=== PATIENT | female | born 1975 | race Caucasian/White ===

== ENCOUNTER 2016-10-17 08:32 | Emergency (ER) | payer OTHER ==
--- NOTE | 2016-10-17 09:20 | UC ---
Cardiac HPI - HPI Summary HPI Summary: Chest pain for 1 week yesterday had episode of sob nausea and sweating with nausea--resolved with rest.. Patient does report increase in stresses including a stressful job, provides care to her nephews - History of Current Complaint Chief Complaint: EDChestPainROMI Stated Complaint: CHEST PAIN Time Seen by Provider: 10/17/16 09:10 Hx Obtained From: Patient, Medical Records Onset/Duration: Gradual Onset, Lasting Weeks - 1, Still Present, Resolved - SOB , Nausea resolved---has continued chest wall tenderness Timing: Constant Initial Severity: Moderate Current Severity: Moderate Pain Intensity: 8 Chest Pain Location: Discrete at: - left sternal border 4 rib area Character: Sharp/Stabbing Aggravating: Exertion Alleviating: Rest Associated Signs & Symptoms: Positive: Chest Pain, Anxiety, Recent Stress, Dizziness, SOB, Nausea/Vomiting, Abdominal Pain. 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 Psychological History: Anxiety, Depression - Surgical History Surgical History: Yes Surgery Procedure, Year, and Place: APPENDIX, TUMOR REMOVED RIGHT SIDE RIB CAGE - Family History Known Family History: Positive: Hypertension, Diabetes - Social History Occupation: Employed Full-time Lives: With Family Alcohol Use: Occasionally Substance Use Type: Marijuana Smoking Status (MU): Never Smoked Tobacco Review of Systems Constitutional: Negative Skin: Negative Eyes: Negative ENT: Negative Respiratory: Shortness Of Breath - yesterday Cardiovascular: Chest Pain - chest wall pain LSB 4 th rib Gastrointestinal: Nausea - yesterday Genitourinary: Negative Motor: Negative Neurovascular: Negative Musculoskeletal: Negative Neurological: Negative Psychological: Negative All Other Systems Reviewed And Are Negative: Yes Physical Exam Triage Information Reviewed: Yes Appearance: Well-Appearing, No Pain Distress, Well-Nourished Vital Signs: Initial Vital Signs Temp 98.2 F 10/17/16 08:33 Pulse 83 10/17/16 08:33 Resp 20 10/17/16 08:33 BP 117/71 10/17/16 08:33 Pulse Ox 97 10/17/16 08:33 Vital Signs Reviewed: Yes Eye Exam: Normal Eyes: Positive: Conjunctiva Clear ENT Exam: Normal ENT: Positive: Normal ENT inspection, Hearing grossly normal. Negative: Nasal congestion, Nasal drainage, Trismus, Muffled/hoarse voice Dental Exam: Normal Neck exam: Normal Neck: Positive: Supple, Nontender, No Lymphadenopathy, Other: - (-) for carotid bruits Respiratory Exam: Normal Respiratory: Positive: Lungs clear, Normal breath sounds, No respiratory distress, No accessory muscle use, Other: - tender LSB as described Cardiovascular Exam: Normal Cardiovascular: Positive: RRR, No Murmur, Pulses Normal, Brisk Capillary Refill Abdominal Exam: Normal Abdomen Description: Positive: No Organomegaly, Soft, Other: - tender left upper and lower abdomen. Negative: Bruit, CVA Tenderness (R), CVA Tenderness (L ), Guarding Bowel Sounds: Positive: Present Musculoskeletal Exam: Normal Musculoskeletal: Positive: Strength Intact, ROM Intact, No Edema, Other: - no calf tenderness, swelling erythema, cord Neurological Exam: Normal Neurological: Positive: Alert, Muscle Tone Normal Psychological Exam: Normal Skin Exam: Normal Diagnostics - Radiology No standard instances Xray Interpretation: No Acute Changes Radiology Interpretation Completed By: Radiologist - EKG Cardiac Rate: NL Cardiac Rhythm: Sinus: Normal Ectopy: None ST Segment: Non-Specific - t wave inver Lead III was flat on EKG 07/29/13 Re-Evaluation - Re-Evaluation First Eval Change: Improved - Sleeping at time of re-evaluation, reviewed instructions and importance of follow up examination and primary care for wellness - Assessment/Plan Course Of Treatment: naproxen, vistaril, rest follow with pcp in next 5 days-- - Differential Diagnoses - Chest Pain Differential Diagnosis/HQI/PQRI: ACS, Angina, Chest Wall - Clinical Impression Provider Diagnoses: Chest wall pain - Physician Notifications Discussed Patient Care With: Surekha Jesus Time Discussed With Above Provider: 10:30 Instructed by Provider To: Other - discharge Discharge - Discharge Plan Condition: Stable Disposition: HOME Prescriptions: Naproxen Sodium [Naproxen Sodium 500 MG TAB] 500 mg PO BID PRN #40 tab PRN Reason: take with food hydrOXYzine PAMOATE CAP* [Vistaril CAP*] 1 - 2 tab PO Q6H #40 cap Patient Education Materials: Chest Pain (ED), Stress (ED), Chest Wall Pain (ED) Forms: *Work Release Referrals: [facility] [place] [facility]FERRAL [Outside] - 5 Days
--- NOTE | 2016-10-17 09:39 | RAD ---
Indication: Chest pain. 2 views of the chest including dual energy PA views demonstrate no mediastinal shift. Right infrahilar surgical clips are noted presumably from prior lung resection. No pleural fluid is identified. Overall no changes noted since July 29, 2013. IMPRESSION: Postoperative changes right infrahilar area with no definite pneumonia.
[2016-10-17 09:49] LABS: Hematocrit 42 % (35-47); Hemoglobin 14.1 g/dl (12.0-16.0); Mean Corpuscular HGB Conc 34 g/dl (31-36); Mean Corpuscular Hemoglobin 32 pg (27-31); Mean Corpuscular Volume 93 fL (80-97); Mean Platelet Volume 8 um3 (7.4-10.4); Red Blood Count 4.48 10^6/ul (4.0-5.4); Red Cell Distribution Width 14 % (10.5-15)
[2016-10-17 09:58] LABS: Albumin 3.7 g/dL (3.2-5.2); BUN/Creatinine Ratio 21.4 (8-20); Calcium 8.8 mg/dL (8.6-10.3); EGFR African American 117.5 (>60); EGFR Non-African American 91.3 (>60); Globulin 2.8 g/dL (2-4); Potassium 3.6 mmol/L (3.5-5.0); Total Bilirubin 0.4 mg/dL (0.2-1.0); Total Protein 6.5 g/dL (6.4-8.9)
[2016-10-17 10:21] LABS: TSH (Thyroid Stimulating Horm) 0.53 mcIU/mL (0.34-5.60)
[2016-10-17 10:55] VITALS: BP 116/80
--- NOTE | 2016-10-18 12:25 | ED ---
Montrell Corona Alfonso, scribed for Surekha Jesus MD on 10/17/16 at 0932 . Progress - Progress Note Progress Note: Discussed case with Esther who will be seeing this patient. - Results/Orders Results/Orders: EKG 0858 BPM 68. NSR. Normal IV and AV conduction times. Normal QTc. Normal axis. Compared no acute changes but T-wave inversion in lead III from 07/29/13 Course/Dx - Diagnoses Provider Diagnoses: Chest wall pain The documentation as recorded by the Montrell gurrola Alfonso accurately reflects the service I personally performed and the decisions made by Edin sawant Barbara J, MD.
== END 2016-10-17 11:06 | disposition home or self-care (01) ==
LOC: ED 08:32
DX: R07.89 Other chest pain (principal); R06.02 Shortness of breath
CPT/HCPCS: 36415; 71020; 80053; 82550; 82553; 83690; 83735; 84443; 84484; 85025; 93005; 99282

== ENCOUNTER → 2016-11-30 10:03 | Emergency (ER) | payer OTHER ==
[~2016-11-30 10:03] MED LIST: Albuterol/Ipratropium NEB.SOL* Albuterol 2.5 MG/Ipratropium 0.5 MG 3 ML INH ONE; Potassium Chlor TAB* 20 MEQ TAB.ER PO ONE; methylPREDNISolone SOD 40 MG* 1 ML VIAL IV ONE
--- NOTE | 2016-11-30 10:45 | ED ---
Respiratory - HPI Summary HPI Summary: Pt here w/ SOB. She developed URI sx 2 days ago with sinus pain/pressure, nasal congestion, rhinorrhea, ST, ear pressure. FOllowing day she developed a cough and fever of 102F. Today her cough got much worse and she has SOB with coughing spells. 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 No mask worn, No mold or asbestos exposure of which she's aware. And although she doesn't smoke, has long h/o 2nd smoke exposure (parents, family, etc) and admits to bronchitis 2 x year. She does not have dx of asthma nor COPD and does not use routine nor rescue medications for breathing issues as she only gets them when she's sick w/ a cold. Appetite reduced but no giselle nausea, vomiting, diarrhea. Additionally, she notes a hive like rash that is painful x .... This is pruritic and has left her LE's pigmented and swollen. No ho cardiac issues. Admits to ED visit within the year for chest pain unrelated to cough/illness. This was worked up and per pt, negative for cardiac pathology. 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 - no residual effects - History of Current Complaint Chief Complaint: EDShortnessOfBreath Stated Complaint: DIFF BREATHING Time Seen by Provider: 11/30/16 10:15 Hx Obtained From: Patient Pain Intensity: 5 Sputum Amount: Scant - Allergy/Home Medications Allergies/Adverse Reactions: Allergies Allergy/AdvReac Type Severity Reaction Status Date / Time No Known Allergies Allergy Verified 11/30/16 10:10 PMH/Surg Hx/FS Hx/Imm Hx Previously Healthy: Yes Endocrine/Hematology History: Reports: Other Endocrine/Hematological Disorders - mirena in place Denies: Hx Diabetes, Hx Thyroid Disease, Hx Coagulopothy, Autoimmune Disease Cardiovascular History: Denies: Hx Aneurysm, Hx Angina, Hx Congenital Heart Disease, Hx Congestive Heart Failure, Hx Coronary Artery Disease, Hx Deep Vein Thrombosis, Hx Embolism , Hx Hypertension, Hx Myocardial Infarction, Hx Pacemaker/ICD, Hx Valvular Heart Disease Respiratory History: Denies: Hx Asthma, Hx Chronic Obstructive Pulmonary Disease (COPD) - admits to bronchitis 2 x year, Hx Sleep Apnea GI History: Denies: Hx Ulcer Sensory History: Denies: Hx Hearing Aid Psychiatric History: Denies: Hx Panic Disorder - Cancer History Cancer Type, Location and Year: NON CANCER Hx Chemotherapy: No Hx Radiation Therapy: No - Surgical History Surgery Procedure, Year, and Place: APPENDIX, TUMOR REMOVED RIGHT SIDE RIB CAGE Infectious Disease History: No Infectious Disease History: Denies: Hx Hepatitis, Hx Human Immunodeficiency Virus (HIV), Traveled Outside the [place] in Last 30 Days - Family History Known Family History: Positive: Hypertension, Diabetes - Social History Occupation: Employed Full-time Lives: With Family Alcohol Use: Occasionally Substance Use Type: Reports: Marijuana - couple of times a month Hx Tobacco Use: No - 2nd hand smoke exposure throughout childhood Smoking Status (MU): Never Smoked Tobacco Review of Systems Positive: Fever - see HPI. Negative: Chills ENT: Other - see HPI Positive: Chest Pain - with coughing Positive: Shortness Of Breath, Cough - see HPI Gastrointestinal: Negative Positive: no symptoms reported Positive: Rash - see HPI Positive: Headache - see HPI Psychological: Normal All Other Systems Reviewed And Are Negative: Yes Physical Exam Triage Information Reviewed: Yes Vital Signs On Initial Exam: Initial Vitals Temp Pulse Resp BP Pulse Ox 98.4 F 81 20 144/91 94 11/30/16 10:10 11/30/16 10:10 11/30/16 10:10 11/30/16 10:10 11/30/16 10:10 Vital Signs Reviewed: Yes Appearance: Positive: Ill-Appearing - coughing frequently and SOB after speaking consecutive sentences. Other times she is able to speak w/o difficulty. , Obese Skin: Positive: Warm, Dry Head/Face: Positive: Normal Head/Face Inspection - frontal and maxillary sinuses TTP Eyes: Positive: Normal, EOMI, Conjunctiva Clear. Negative: Conjunctiva Inflammed, Discharge ENT: Positive: Normal ENT inspection, Hearing grossly normal, Pharynx normal, Nasal congestion, TMs normal. Negative: Nasal drainage - no edema, Tonsillar swelling, Tonsillar exudate, Muffled/hoarse voice Neck: Positive: Supple, Nontender, No Lymphadenopathy Respiratory/Lung Sounds: Positive: Breath Sounds Present, Wheezes - throughout chest. Negative: Rales Cardiovascular: Positive: Normal, RRR, Pulses are Symmetrical in both Upper and Lower Extremities, S1, S2. Negative: Murmur, Rub, Leg Edema Left, Leg Edema Right - (-) Diego's signs B/L Abdomen Description: Positive: Nontender, Soft Bowel Sounds: Positive: Present Musculoskeletal: Positive: Normal, Strength/ROM Intact Neurological: Positive: Normal, Sensory/Motor Intact, Alert, Oriented to Person Place, Time, CN Intact II-III Psychiatric: Positive: Normal - although brief anxiety when SOB occurs - she's able to recover her breathing - Roxanna Coma Scale Coma Scale Total: 15 Diagnostics - Vital Signs Vital Signs Temp Pulse Resp BP Pulse Ox 11/30/16 10:36 71 16 96 11/30/16 10:22 98.4 F 80 18 152/98 94 11/30/16 10:19 18 11/30/16 10:10 98.4 F 81 20 144/91 94 - Laboratory Result Diagrams: 11/30/16 10:30 11/30/16 10:30 Lab Statement: Any lab studies that have been ordered have been reviewed, and results considered in the medical decision making process. 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 H/o bronchitis 2 x year for past many years and h/ o 2nd hand smoke exposure during childhood. Clinically, this constitutes dx of COPD however w/o CXR hyperinflation, will defer to pulmonology for definitive dx. Wheezing throughout chest upon auscultation. This and cough/SOB improved clinically and per pt's report s/p 2 duonebs and prednisone IV. Will d/c w/ albuterol and prednisone and close f/u w/ PCP, referral to pulmonology. Advised rest and avoiding triggers (ie. dust, chemicals, etc) until cleared by PCP. Reviewed danger s/sx of when to return to ED. NOTE: a w/u for sarcoidosis was initiated today and all tests are negative. This was checked for her combination of pulmonary sx along with chest pain last month and rash. Advise continued f/u w/ PCP. Pt agrees w/ plan. - Diagnoses Provider Diagnoses: Reactive airway disease with wheezing Discharge - Discharge Plan Condition: Stable Disposition: HOME Prescriptions: Albuterol HFA INHALER* [Ventolin HFA Inhaler*] 2 puff INH Q4H PRN #1 mdi PRN Reason: Cough predniSONE TAB* [Deltasone TAB*] 40 mg PO DAILY #8 tab Patient Education Materials: Reactive Airways Disease (ED) Referrals: Mitchell Ramos MD [Primary Care Provider] - Esmer Palomo MD [Medical Doctor] - Additional Instructions: You appear to be having a reactive airway episode today most likely triggered by dust inhalation. Please rest and avoid triggers (ie. dust, perfumes, candles , air fresheners, smoke, etc) until cleared by PCP. It is advised that you use your albuterol inhaler every 4-6 hours for cough, wheezing, chest tightness, shortness of breath - DO NOT EXCEED THIS DOSE - if you feel this is not helping , return to ED. Complete prednisone as prescribed and follow-up with PCP for referral to payroll consultant. Call today to schedule appointment. You may also support your upper respiratory tract by using saline nasal washes and throat gargles as needed for congestion, irritation. Drink plenty of fluids. *If you develop return of difficulty breathing, shortness of breath, fatigue, return to ED
[2016-11-30 11:05] LABS: Hematocrit 38 % (35-47); Hemoglobin 13.1 g/dl (12.0-16.0); Mean Corpuscular HGB Conc 34 g/dl (31-36); Mean Corpuscular Hemoglobin 31 pg (27-31); Mean Corpuscular Volume 92 fL (80-97); Mean Platelet Volume 7 um3 (7.4-10.4); Red Blood Count 4.18 10^6/ul (4.0-5.4); Red Cell Distribution Width 14 % (10.5-15); White Blood Count 8.9 10^3/ul (3.5-10.8)
[2016-11-30 11:24] LABS: C Reactive Protein 6.07 mg/L (< 5.00); Total Bilirubin 0.3 mg/dL (0.2-1.0)
[2016-11-30 11:26] LABS: Albumin 3.5 g/dL (3.2-5.2); BUN/Creatinine Ratio 21.2 (8-20); Calcium 8.8 mg/dL (8.6-10.3); EGFR African American 125.7 (>60); EGFR Non-African American 97.7 (>60); Globulin 2.8 g/dL (2-4); Potassium 3.1 mmol/L (3.5-5.0); Total Protein 6.3 g/dL (6.4-8.9)
--- NOTE | 2016-11-30 11:27 | RAD ---
INDICATION: Cough, wheezing and shortness of breath. COMPARISON: Comparison is made with a prior chest x-ray study from October 17, 2016. TECHNIQUE: Dual-energy PA and lateral views of the chest were obtained. FINDINGS: The heart is within normal limits in size. Mediastinal and hilar contours appear within normal limits. Several surgical clips project over the right hilum. There has been partial resection of the right fifth rib. The lungs are clear. No pleural effusion is seen. IMPRESSION: POSTSURGICAL CHANGES, NO EVIDENCE FOR ACUTE FINDING.
[2016-11-30 12:30] LABS: Erythrocyte Sed Rate 14 mm/Hr (0-14)
[2016-11-30 13:05] VITALS: BP 139/74
== END | disposition home or self-care (01) ==
LOC: ED 10:03
DX: R07.9 Chest pain, unspecified (principal); R06.02 Shortness of breath; R21 Rash and other nonspecific skin eruption; R51 Headache; J45.909 Unspecified asthma, uncomplicated
CPT/HCPCS: 36415; 71020; 80053; 85025; 85652; 86140; 86431; 94640; 96374; 99283; A9270-GY; J2920

== ENCOUNTER 2017-05-15 14:47 | Emergency (ER) | payer OTHER ==
[2017-05-15 16:31] VITALS: BP 141/88
--- NOTE | 2017-05-15 16:45 | UC ---
FLU HPI - HPI Summary HPI Summary: Pt presents with body aches, chills, ST, and cough that started today. She also says that for the past 3 days she has had nausea with 2-3 episodes of vomiting. Has not vomited yet today, but still feels afraid to ear. Her boyfriend is sick with similar symptoms and is being treating for the flu. She has been taking tylenol cold and flu for her symptoms with no relief. She denies fever, SOB, chest pain, diarrhea, dysuria, or pelvic pain. She has not taken anything OTC for this. - History of Current Complaint Chief Complaint: UCGeneralIllness Stated Complaint: NAUSEA, FATIGUE Time Seen by Provider: 05/15/17 16:33 Hx Obtained From: Patient Hx Last Menstrual Period: 05/04/17 Onset/Duration: Gradual Onset Severity Currently: Severe Severity Initially: Severe Pain Intensity: 8 Pain Scale Used: 0-10 Numeric - Allergy/Home Medications Allergies/Adverse Reactions: Allergies Allergy/AdvReac Type Severity Reaction Status Date / Time No Known Allergies Allergy Verified 05/15/17 16:19 Home Medications: Home Medications Fexofenadine/Pseudoephedrine [Kiesha-D 24 Hour Tablet] 1 each PO DAILY [History Confirmed 05/15/17] LORazepam TAB(*) [Ativan 1 MG TAB (*)] 1 mg PO BEDTIME PRN 05/15/17 [History Confirmed 05/15/17] Phenylephrine/Dm/Acetaminop/GG [Tylenol Cold-Flu Severe Caplet] 1 each PO ONCE 05/15/17 [History Confirmed 05/15/17] PMH/Surg Hx/FS Hx/Imm Hx Previously Healthy: Yes Respiratory History: Asthma Psychological History: Anxiety, Depression - Surgical History Surgical History: Yes Surgery Procedure, Year, and Place: APPENDIX 1993, TUMOR REMOVED RIGHT SIDE RIB CAGE 2006 - Family History Known Family History: Positive: Hypertension, Diabetes - Social History Occupation: Employed Full-time Lives: With Family Alcohol Use: Occasionally Substance Use Type: Marijuana Smoking Status (MU): Never Smoked Tobacco Household Exposure Type: Cigarettes Review of Systems Constitutional: Fatigue, Other - Body aches Skin: Negative Eyes: Negative ENT: Ear Ache Respiratory: Cough Cardiovascular: Negative Gastrointestinal: Abdominal Pain - Generalized, Vomiting, Nausea Genitourinary: Negative Neurovascular: Negative Musculoskeletal: Negative Neurological: Negative Psychological: Negative All Other Systems Reviewed And Are Negative: Yes Physical Exam Triage Information Reviewed: Yes Appearance: Well-Appearing, No Pain Distress, Well-Nourished Vital Signs: Initial Vital Signs Temp 99.8 F 05/15/17 16:23 Pulse 68 05/15/17 16:23 Resp 16 05/15/17 16:23 BP 141/88 05/15/17 16:23 Pulse Ox 100 05/15/17 16:23 Vital Signs Reviewed: Yes Eyes: Positive: Conjunctiva Clear. Negative: Conjunctiva Inflamed, Discharge ENT: Positive: Hearing grossly normal, Pharynx normal, TMs normal, Uvula midline. Negative: Pharyngeal erythema, Nasal congestion, Nasal drainage, TM bulging, TM dull, TM red, Tonsillar swelling, Tonsillar exudate, Hoarse voice, Sinus tenderness Neck: Positive: Supple, Nontender, No Lymphadenopathy Respiratory: Positive: Chest non-tender, Lungs clear, Normal breath sounds, No respiratory distress, No accessory muscle use Cardiovascular: Positive: RRR, No Murmur, Pulses Normal Abdomen Description: Positive: No Organomegaly, Soft, Other: - Generalized tenderness. Negative: CVA Tenderness (R), CVA Tenderness (L), Distended, Guarding, McBurney's Point Tenderness, Peritoneal Signs, Pulsatile Mass, Splenomegaly Bowel Sounds: Positive: Present Neurological: Positive: Alert Psychological: Positive: Age Appropriate Behavior Skin: Negative: rashes Flu Course/Dx - Course Course Of Treatment: POC flu swab negative. Suspect viral gastroenteritis vs influenza. Tamiflu, Zofran, and zantac. F/u with PCP within 1 week or if symptoms persist. - Differential Dx/Diagnosis Provider Diagnoses: Viral gastroenteritis Discharge - Discharge Plan Condition: Stable Disposition: HOME Prescriptions: Ondansetron TAB* [Zofran 4 MG Tab*] 4 mg PO Q6H PRN #12 tab PRN Reason: Nausea Oseltamivir CAP* [Tamiflu CAP*] 75 mg PO BID #10 cap Ranitidine TAB (NF) [Zantac TAB (NF)] 150 mg PO DAILY PRN #14 tab PRN Reason: Nausea Patient Education Materials: Influenza (ED), Gastroenteritis (DC) Forms: *Work Release Referrals: Mitchell Ramos MD [Primary Care Provider] - Additional Instructions: If you develop a fever, shortness of breath, chest pain, new or worsening symptoms - please call your PCP or go to the ED. Your blood pressure was high at todays visit. Please see your primary provider within 4 weeks for recheck and re-evaluation.
== END 2017-05-15 17:35 | disposition home or self-care (01) ==
LOC: UCEAST 14:47
DX: A08.4 Viral intestinal infection, unspecified (principal); J45.909 Unspecified asthma, uncomplicated; F41.9 Anxiety disorder, unspecified; F32.9 Major depressive disorder, single episode, unspecified; F12.90 Cannabis use, unspecified, uncomplicated; Z77.22 Contact with and (suspected) exposure to environmental tobacco smoke (acute) (chronic)
CPT/HCPCS: 87502; 99212; G0463

== ENCOUNTER 2018-03-14 16:50 | Emergency (ER) | payer OTHER ==
--- NOTE | 2018-03-14 17:15 | ED ---
Back Pain - HPI Summary HPI Summary: Patient is a 42 y/o F presenting to ED with left lower back pain onsetting four days ago. She states pain onset suddenly when she woke up in the morning, no injury reported. Pain is characterized as spasms. She notes that certain movements aggravate pain. No numbness is reported, pain does not radiate into leg. Left leg is reported to be weak. No abnormalities with urination or bowel movements reported. Pain is noted to radiate in left gluteal area. She reports vomiting, no fever or chills. On triage, pain is rated 10/10, nothing is noted to aggravate/alleviate Sx. 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 Home medications and allergies are reviewed. - History of Current Complaint Chief Complaint: EDBackInjuryPain Stated Complaint: BACK PAIN Time Seen by Provider: 03/14/18 17:08 Hx Obtained From: Patient Hx Last Menstrual Period: 05/04/17 Onset/Duration: Lasting Days - four days, Still Present Onset/Duration: Started Days Ago - four days, Still Present Timing: Constant, Lasting Days - four days Back Pain Location: Is Discrete @ - left lower back Severity Currently: Severe Pain Intensity: 10 Pain Scale Used: 0-10 Numeric - 10/10 Character: Spasmodic Aggravating Symptom(s): Movement - certain Alleviating Symptom(s): Nothing Associated Signs And Symptoms: Positive: Other - no chills. Negative: Fever, Bladder Incontinence, Bowel Incontinence - Allergies/Home Medications Allergies/Adverse Reactions: Allergies Allergy/AdvReac Type Severity Reaction Status Date / Time No Known Allergies Allergy Verified 03/14/18 17:02 PMH/Surg Hx/FS Hx/Imm Hx Endocrine/Hematology History: Reports: Other Endocrine/Hematological Disorders - mirena in place Denies: Hx Diabetes, Hx Thyroid Disease Cardiovascular History: Denies: Hx Aneurysm, Hx Angina, Hx Congenital Heart Disease, Hx Congestive Heart Failure, Hx Coronary Artery Disease, Hx Deep Vein Thrombosis, Hx Embolism , Hx Hypertension, Hx Myocardial Infarction, Hx Pacemaker/ICD, Hx Valvular Heart Disease Respiratory History: Denies: Hx Asthma, Hx Chronic Obstructive Pulmonary Disease (COPD) - admits to bronchitis 2 x year, Hx Sleep Apnea GI History: Denies: Hx Ulcer Sensory History: Denies: Hx Hearing Aid Psychiatric History: Denies: Hx Panic Disorder - Cancer History Cancer Type, Location and Year: NON CANCER Hx Chemotherapy: No Hx Radiation Therapy: No - Surgical History Surgery Procedure, Year, and Place: APPENDIX 1993, TUMOR REMOVED RIGHT SIDE RIB CAGE 2006 Infectious Disease History: No Infectious Disease History: Denies: Hx Hepatitis, Hx Human Immunodeficiency Virus (HIV), Traveled Outside the [place] in Last 30 Days - Family History Known Family History: Positive: Hypertension, Diabetes - Social History Alcohol Use: Occasionally Substance Use Type: Reports: Marijuana Hx Tobacco Use: No - 2nd hand smoke exposure throughout childhood Smoking Status (MU): Never Smoked Tobacco Review of Systems Negative: Fever, Chills Positive: Vomiting Positive: other - NO ABNORMAL URINATION OR BOWEL MOVEMENTS . Negative: incontinence Positive: Other - POSITIVE - LEFT LOWER BACK PAIN Positive: Weakness - LEFT LEG . Negative: Numbness All Other Systems Reviewed And Are Negative: Yes Physical Exam - Summary Physical Exam Summary: VITAL SIGNS: Reviewed. GENERAL: Patient is a well-developed and nourished female who is lying comfortable in the stretcher. Patient is not in any acute respiratory distress. Vertebral tenderness in lumbar spine. HEAD AND FACE: No signs of trauma. No ecchymosis, hematomas or skull depressions. No sinus tenderness. EYES: PERRLA, EOMI x 2, No injected conjunctiva, no nystagmus. EARS: Hearing grossly intact. Ear canals and tympanic membranes are within normal limits. MOUTH: Oropharynx within normal limits. NECK: Supple, trachea is midline, no adenopathy, no JVD, no carotid bruit, no c- spine tenderness, neck with full ROM. CHEST: Symmetric, no tenderness at palpation LUNGS: Clear to auscultation bilaterally. No wheezing or crackles. CVS: Regular rate and rhythm, S1 and S2 present, no murmurs or gallops appreciated. ABDOMEN: Soft, non-tender. No signs of distention. No rebound no guarding, and no masses palpated. Bowel sounds are normal. RECTAL EXAM: done in presence of female fiber optics technician, normal sphincter tone, no saddle anesthesia. EXTREMITIES: left leg weakness, no edema, no cyanosis or clubbing. NEURO: Alert and oriented x 3. No acute neurological deficits. Speech is normal and follows commands. SKIN: Dry and warm Triage Information Reviewed: Yes Vital Signs On Initial Exam: Initial Vitals Temp Pulse Resp BP Pulse Ox 98.8 F 85 18 129/100 96 03/14/18 16:51 03/14/18 16:51 03/14/18 16:51 03/14/18 16:51 03/14/18 16:51 Vital Signs Reviewed: Yes Diagnostics - Vital Signs Vital Signs Temp Pulse Resp BP Pulse Ox 03/14/18 16:51 98.8 F 85 18 129/100 96 - Laboratory Result Diagrams: 03/14/18 17:40 03/14/18 17:40 Lab Statement: Any lab studies that have been ordered have been reviewed, and results considered in the medical decision making process. Back Pain Course/Dx - Course Assessment/Plan: Patient is a 42 y/o F presenting to ED with left lower back pain onsetting four days ago. She states pain onset suddenly when she woke up in the morning, no injury reported. Pain is characterized as spasms. She notes that certain movements aggravate pain. No numbness is reported, pain does not radiate into leg. Left leg is reported to be weak. No abnormalities with urination or bowel movements reported. Pain is noted to radiate in left gluteal area. She reports vomiting, no fever or chills. On triage, pain is rated 10/10, nothing is noted to aggravate/alleviate Sx. 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 Home medications and allergies are reviewed. Since the patient has a history of mass at the chest, no history of trauma or heavy lifting, and an acute back pain with left lower extremity weakness, I discussed the case with Dr. Wade from radiology and he agrees with MRI of the lumbar spine. The patient was given Decadron, Toradol and Norflex for the pain. Patient will be signed out to Dr. Valerio at shift change. He will follow- up the MRI of the lumbar spine and further assessment and disposition of the patient. - Diagnoses Provider Diagnoses: Sciatica - Provider Notifications Discussed Care Of Patient With: Zaria Wade Time Discussed With Above Provider: 17:29 Instructed by Provider To: Other - Patient's case was discussed with Dr. Wade. Dr. Wade approves MRI of patient. Discharge - Sign-Out/Discharge Documenting (check all that apply): Sign-Out Patient Signing out patient TO: Holli Valerio Receiving patient FROM: Hilton Diaz - Discharge Plan Condition: Stable Disposition: HOME Prescriptions: Cyclobenzaprine TAB* [Flexeril 10 MG TAB*] 10 mg PO TID PRN #20 tab PRN Reason: Spasms - Back Dexamethasone TAB* [Decadron TAB*] 4 mg PO BID #10 tab oxyCODONE/Acetamin 5/325 MG* [Percocet 5/325 TAB*] 1 tab PO Q6H PRN #14 tab MDD 4 PRN Reason: Pain Patient Education Materials: Oxycodone/Acetaminophen (By mouth), Cyclobenzaprine (By mouth), Dexamethasone (By mouth), Sciatica (ED) Referrals: Mitchell Ramos MD [Primary Care Provider] - 2 Days Additional Instructions: RETURN TO THE EMERGENCY DEPARTMENT FOR NEW OR WORSENING SYMPTOMS - Attestation Statements Document Initiated by Kristopheribibeth: Yes Documenting Scribe: OSMANY PERKINS Provider For Whom Kami is Documenting (Include Credential): HILTON DIAZ MD Scribe Attestation: OSMANY Corona , scribed for HILTON DIAZ MD on 03/16/18 at 2124. Scribe Documentation Reviewed: Yes Provider Attestation: The documentation as recorded by the OSMANY gurrola accurately reflects the service I personally performed and the decisions made by me, HILTON DIAZ MD Status of Scribe Document: Viewed
[2018-03-14] MEDS ORDERED: Dexamethasone IV* 4 MG/ML 5 ML VIAL (20 MG) IVPB ONE (17:28)
[2018-03-14] MEDS ORDERED: Ketorolac INJ* 30 MG/ML 1 ML VIAL IV PUSH PRN (17:28)
[2018-03-14] MEDS ORDERED: Orphenadrine Citrate IV* 30 MG/ML 2 ML VIAL IV ONE (17:28)
[2018-03-14 18:21] LABS: EGFR Non-African American 83.9 (>60)
[2018-03-14 18:23] LABS: ABS Basophils 0.1 10^3/ul (0-0.2); ABS Eosinophils 0.2 10^3/ul (0-0.6); ABS Lymphocytes 2.9 10^3/ul (1.0-4.8); ABS Monocytes 0.5 10^3/ul (0-0.8); ABS Neutrophils 4.4 10^3/ul (1.5-7.7); ABS Nucleated RBC 0.01 10^3/ul; Hematocrit 40 % (35-47); Hemoglobin 13.6 g/dl (12.0-16.0); Mean Corpuscular HGB Conc 34 g/dl (31-36); Mean Corpuscular Hemoglobin 31 pg (27-31); Mean Corpuscular Volume 91 fL (80-97); Mean Platelet Volume 6.9 fL (7.4-10.4); Platelet Count 325 10^3/ul (150-450); Red Blood Count 4.38 10^6/ul (4.00-5.40); Red Cell Distribution Width 14 % (10.5-15)
[2018-03-14 18:24] LABS: Eosinophil % 1.9 %; Lymphocyte % 35.9 %; Nucleated Red Blood Cells % 0.1
--- NOTE | 2018-03-14 19:09 | ED ---
Progress - Progress Note Progress Note: Patient was signed out from Dr. Diaz upon shift change pending MRI of the lower back and disposition. DIAG: CT: Thoracic spine MRI reveals, per radiologist, no acute findings in the thoracic spine. ED physician has reviewed this radiology report. Lumbar spine MRI reveals, per radiologist, no acute findings. ED physician has reviewed this radiology report. Re-Evaluation - Re-Evaluation First Eval Re-Evaluation Time: 20:29 Change: Unchanged Comment: Upon physical exam, patient has lumbosacral tenderness and tenderness over the left middle buttock. Positive straight leg raise at 10 degrees. Course/Dx - Course Course Of Treatment: Patient was signed out from Dr. Diaz upon shift change pending MRI of the lower back and disposition. Thoracic spine MRI reveals, per radiologist, no acute findings in the thoracic spine. ED physician has reviewed this radiology report. Lumbar spine MRI reveals, per radiologist, no acute findings. ED physician has reviewed this radiology report. Upon physical exam and re-evaluation, patient has lumbosacral tenderness and tenderness over the left middle buttock. Positive straight leg raise at 10 degrees. Pt does most likely have sciatica. - Diagnoses Provider Diagnoses: Sciatica - Provider Notifications Time Discussed With Above Provider: 17:29 Instructed by Provider To: Other - Patient's case was discussed with Dr. Wade. Dr. Wade approves MRI of patient. Discharge - Sign-Out/Discharge Documenting (check all that apply): Patient Departure - Discharge home, Receiving Sign-Out Receiving patient FROM: Hilton Diaz - Upon shift change pending MRI - Discharge Plan Condition: Stable Disposition: HOME Prescriptions: Cyclobenzaprine TAB* [Flexeril 10 MG TAB*] 10 mg PO TID PRN #20 tab PRN Reason: Spasms - Back Dexamethasone TAB* [Decadron TAB*] 4 mg PO BID #10 tab oxyCODONE/Acetamin 5/325 MG* [Percocet 5/325 TAB*] 1 tab PO Q6H PRN #14 tab MDD 4 PRN Reason: Pain Patient Education Materials: Oxycodone/Acetaminophen (By mouth), Cyclobenzaprine (By mouth), Dexamethasone (By mouth), Sciatica (ED) Referrals: Mitchell Ramos MD [Primary Care Provider] - 2 Days Additional Instructions: RETURN TO THE EMERGENCY DEPARTMENT FOR NEW OR WORSENING SYMPTOMS - Attestation Statements Document Initiated by Scribe: Yes Documenting Scribe: Colette Lerma Provider For Whom Scribe is Documenting (Include Credential): Dr. Holli Valerio MD Scribe Attestation: I, Colette Lerma, scribed for Dr. Holli Valerio MD on 03/14/18 at 2036. Status of Scribe Document: Ready
[2018-03-14] MEDS ORDERED: oxyCODONE/Acetamin 5/325 MG* TAB PO ONE (21:07)
[2018-03-14 21:44] VITALS: BP 121/74
== END 2018-03-14 21:43 | disposition home or self-care (01) ==
LOC: ED 16:50
DX: M54.30 Sciatica, unspecified side (principal); M54.9 Dorsalgia, unspecified
CPT/HCPCS: 36415; 72146; 72148; 80053; 82270; 83605; 85025; 85652; 86140; 96374; 96375; 99282; A9270-GY; J1100; J2360

== ENCOUNTER 2018-07-23 17:35 | Emergency (ER) | payer OTHER ==
[2018-07-23 17:59] VITALS: BP 116/72
--- NOTE | 2018-07-23 18:04 | UC ---
Skin Complaint HPI - HPI Summary HPI Summary: 43 yo female presents with pain and swelling to right great toe/nail for the last 2-3 getting progressively worse. Has been soaking it in warm water. Feels like it is throbbing. Denies injury. - History of Current Complaint Chief Complaint: UCLowerExtremity Time Seen by Provider: 07/23/18 17:54 Stated Complaint: TOE PAIN Hx Obtained From: Patient Hx Last Menstrual Period: 07/15/18 Onset/Duration: Gradual Onset Timing: Constant Onset Severity: Moderate Current Severity: Severe Pain Intensity: 10 Pain Scale Used: 0-10 Numeric - Allergy/Home Medications Allergies/Adverse Reactions: Allergies Allergy/AdvReac Type Severity Reaction Status Date / Time No Known Allergies Allergy Verified 07/23/18 17:59 PMH/Surg Hx/FS Hx/Imm Hx Respiratory History: Asthma GI/ History: Gastroesophageal Reflux Psychological History: Anxiety, Depression - Surgical History Surgical History: Yes Surgery Procedure, Year, and Place: APPENDIX 1993, BENIGN BRONCHIAL TUMOR REMOVED RIGHT SIDE RIB CAGE 2006 - Family History Known Family History: Positive: Hypertension, Diabetes - Social History Occupation: Employed Full-time Lives: With Family Alcohol Use: Occasionally Substance Use Type: Marijuana Substance Use Comment - Amount & Last Used: occasionally Smoking Status (MU): Never Smoked Tobacco Household Exposure Type: Cigarettes Review of Systems All Other Systems Reviewed And Are Negative: Yes Constitutional: Positive: Negative Skin: Positive: Other - Right great toe pain and swelling Respiratory: Positive: Negative Cardiovascular: Positive: Negative Neurovascular: Positive: Negative Neurological: Positive: Negative Psychological: Positive: Negative Physical Exam - Summary Physical Exam Summary: GENERAL: NAD. WDWN. No pain distress. SKIN: RIGHT GREAT TOE: At the nail-skin fold on the medial aspect there is moderate edema and erythema with TTP. No open wound. No streaking, bleeding, or drainage. NECK: Supple. Nontender. No lymphadenopathy. CHEST: No accessory muscle use. Breathing comfortably and in no distress. CV: Pulses intact. Cap refill <2seconds NEURO: Alert. PSYCH: Age appropriate behavior. Triage Information Reviewed: Yes Vital Signs: Initial Vital Signs Temp 97.8 F 07/23/18 17:54 Pulse 81 07/23/18 17:54 Resp 18 07/23/18 17:54 BP 116/72 07/23/18 17:54 Pulse Ox 100 07/23/18 17:54 Vital Signs Reviewed: Yes Procedures - Incision and Drainage Right Toe Anesthesia: Other - None Instrument(s): Needle - 22G Packing: Other - None Course/Dx - Course Course Of Treatment: The procedure was explained to the pt and all questions were answered. A time out was performed, witnessed, and signed. The toenail-skin fold was cleansed with an alcohol pad. A 22G needle was used to melchor the area and mild purulent yellow material was able to be expressed. The area was bandaged with a band-aid . Pt tolerated procedure well. Rx for keflex for paronychia - Diagnoses Provider Diagnosis: Paronychia Discharge - Sign-Out/Discharge Documenting (check all that apply): Patient Departure All imaging exams completed and their final reports reviewed: No Studies - Discharge Plan Condition: Stable Disposition: HOME Prescriptions: Cephalexin CAP* [Keflex CAP*] 500 mg PO BID #14 cap Patient Education Materials: Paronychia (ED) Referrals: Robert Alexander ENVIRONMENTAL CONSULTANT [Primary Care Provider] - Additional Instructions: If you develop a fever, shortness of breath, chest pain, new or worsening symptoms - please call your PCP or go to the ED. Soak your toe in warm salt/epsom salts - Billing Disposition and Condition Condition: STABLE Disposition: Home - Attestation Statements Provider Attestation: I was available for consult. This patient was seen by the SERGIO. The patient was not presented to, seen by, or examined by me. -Nora
== END 2018-07-23 18:23 | disposition home or self-care (01) ==
LOC: UCEAST 17:35
DX: L03.031 Cellulitis of right toe (principal); J45.909 Unspecified asthma, uncomplicated; K21.9 Gastro-esophageal reflux disease without esophagitis; F41.9 Anxiety disorder, unspecified; F32.9 Major depressive disorder, single episode, unspecified
CPT/HCPCS: 10160; 99212; G0463

== ENCOUNTER 2019-01-16 19:01 | Emergency (ER) | payer OTHER ==
[2019-01-16] MEDS ORDERED: Tetan/Diph/Pertus SYR(Tdap)* 0.5 ML SYR(BOOSTRIX) use SYR contains LATEX IM ONE (19:16)
[2019-01-16] MEDS ORDERED: Morphine 4 MG/ML VIAL (1 ml) 4 MG/ML VIAL IV ONE ×3 (19:29→20:34)
[2019-01-16] MEDS ORDERED: Ondansetron INJ* 2 MG/ML VIAL IV ONE (19:29)
[2019-01-16] MEDS ORDERED: Amoxicillin/Clavulanate TAB* 875 MG PO ONE (19:59)
--- NOTE | 2019-01-16 20:03 | ED ---
Bite Injury/Animal - HPI Summary HPI Summary: Pt is a 43 y/o F presenting to the ED for an animal bite. Pt was bitten by a dog on 01/16/19 on the left hand, right finger, and right wrist. The dog is owned by the pt and the dog is UTD with their vaccinations. The dog is 65 pounds and is a pitbull. Pt typically keeps her dogs separate from each other, but accidentally left the door open after which her dogs attacked each other. Pt was bitten attempting to separate her dogs. Pt complains of numbness and pain in the bilateral hands. Pt feels that her hands are crushed. Pt denies fever. Pt takes medications for anxiety and asthma. Pt has a PSHx tumor removal and appendectomy. Pt has a FMHx of HTN and DM. - History of Current Complaint Chief Complaint: EDAnimalBite Stated Complaint: DOG BITE PER PT Time Seen by Provider: 01/16/19 19:16 Hx Obtained From: Patient Hx Last Menstrual Period: 07/15/18 Onset of Injury: Happened minutes ago, Still Present Type of Bite: Pet - Dog owned by pt Hx of Bite: Unprovoked Has Animal Been Immunized?: Yes Severity Initially: Severe Severity Currently: Severe Pain Intensity: 10 Pain Scale Used: 0-10 Numeric Character: Abrasion/Laceration Aggravating Factor(s): Nothing Alleviating Factor(s): Nothing Associated Signs And Symptoms: Positive: Numbness/Tingling - Bilateral hands. Negative: Fever Animal Available for Observation: Yes - Allergies/Home Medications Allergies/Adverse Reactions: Allergies Allergy/AdvReac Type Severity Reaction Status Date / Time No Known Allergies Allergy Verified 07/23/18 17:59 PMH/Surg Hx/FS Hx/Imm Hx Previously Healthy: Yes Endocrine/Hematology History: Reports: Other Endocrine/Hematological Disorders - mirena in place Denies: Hx Diabetes, Hx Thyroid Disease Cardiovascular History: Denies: Hx Aneurysm, Hx Angina, Hx Congenital Heart Disease, Hx Congestive Heart Failure, Hx Coronary Artery Disease, Hx Deep Vein Thrombosis, Hx Embolism , Hx Hypertension, Hx Myocardial Infarction, Hx Pacemaker/ICD, Hx Valvular Heart Disease Respiratory History: Reports: Hx Asthma, Hx Sleep Apnea, Other Respiratory Problems/Disorders - uses albuterol inhaler prn. denies hx asthma Denies: Hx Chronic Obstructive Pulmonary Disease (COPD) - admits to bronchitis 2 x year GI History: Reports: Hx Gastroesophageal Reflux Disease Denies: Hx Ulcer Musculoskeletal History: Reports: Hx Arthritis, Hx Back Problems Sensory History: Denies: Hx Hearing Aid Psychiatric History: Reports: Hx Anxiety, Hx Depression Denies: Hx Panic Disorder - Cancer History Cancer Type, Location and Year: NON CANCER Hx Chemotherapy: No Hx Radiation Therapy: No - Surgical History Surgical History: Yes Surgery Procedure, Year, and Place: APPENDIX 1993, BENIGN BRONCHIAL TUMOR REMOVED RIGHT SIDE RIB CAGE 2006 Infectious Disease History: No Infectious Disease History: Denies: Hx Hepatitis, Hx Human Immunodeficiency Virus (HIV), Traveled Outside the [place] in Last 30 Days - Family History Known Family History: Positive: Hypertension, Diabetes - Social History Alcohol Use: Occasionally Hx Substance Use: Yes Substance Use Type: Reports: Marijuana Substance Use Comment - Amount & Last Used: occasionally Hx Tobacco Use: No - 2nd hand smoke exposure throughout childhood Smoking Status (MU): Never Smoked Tobacco Review of Systems Negative: Fever Positive: Myalgia - Bilateral hands Positive: Other - Bite lorenzana to the left hand, right finger, and right wrist Positive: Numbness - Bilateral hands All Other Systems Reviewed And Are Negative: Yes Physical Exam - Summary Physical Exam Summary: Constitutional: Well-developed, Well-nourished, Alert. (-) Distressed Skin: Warm, Dry. 2 puncture wounds to left thenar eminence. Laceration to right middle finger DIP through distal nail, multiple lacerations to anterior right forearm with some swelling, one laceration to ulnar aspect to left wrist and right lower middle finger. HENT: Normocephalic; Atraumatic Eyes: Conjunctiva normal Neck: Musculoskeletal ROM normal neck. (-) JVD, (-) Stridor, (-) Nuchal rigidity Cardio: Rhythm regular, rate normal, Heart sounds normal; Intact distal pulses; Radial pulses are 2+ and symmetric. (-) Murmur Pulmonary/Chest wall: Effort normal. (-) Respiratory distress, (-) Wheezes, (-) Rales Abd: Soft, (-) tenderness, (-) Distension, (-) Guarding, (-) Rebound Musculoskeletal: + soft tissue swelling to R forearm, tenderness of forearm, wrist and hand, SILT, 2+ radial pulse, compartments soft. L hand w tenderness to thenar eminence R Hand PE Motor: Opposition of thumb and first finger intact Able to extend thumb Able to flex and extend wrist Able to spread fingers Sensory: Sensation intact in 1st, 2nd, and 5th digits Pulse: 2+ radial pulse intact. Brisk cap refill. Lymph: (-) Cervical adenopathy Neuro: Alert, Oriented x3 Psych: Mood and affect Normal Triage Information Reviewed: Yes Vital Signs On Initial Exam: Initial Vitals Temp Pulse Resp BP Pulse Ox 99.2 F 104 18 165/99 98 01/16/19 19:04 01/16/19 19:04 01/16/19 19:04 01/16/19 19:04 01/16/19 19:04 Vital Signs Reviewed: Yes Procedures - Sedation Patient Received Moderate/Deep Sedation with Procedure: No Diagnostics - Vital Signs Vital Signs Temp Pulse Resp BP Pulse Ox 01/16/19 19:52 22 01/16/19 19:35 22 01/16/19 19:04 99.2 F 104 18 165/99 98 - Laboratory Lab Statement: Any lab studies that have been ordered have been reviewed, and results considered in the medical decision making process. - Radiology Hand X-ray Radiology Interpretation Completed By: ED Physician Summary of Radiographic Findings: Hand X-ray IMPRESSION: No acute fracture, pending official radiology report. Reviewed and interpreted by ED physician. Forearm X-ray Radiology Interpretation Completed By: ED Physician Summary of Radiographic Findings: Forearm X-ray IMPRESSION: soft tissue swelling and subq air consistent with a bite; pending official radiology report. Reviewed and interpreted by ED physician. Re-Evaluation - Re-Evaluation 1st re-eval Re-Evaluation Time: 21:37 Change: Improved Comment: At 21:37, I re-evaluated the pt is feeling better, sensation intact, compartments soft, will discharge on pain meds. Bite Injury Course/Dx - Course Course Of Treatment: 43 y/o F bit by dog p/w arm pain. - R forearm w soft tissue swelling, hand pain, multiple bites to hand and arm. - L hand w thenar lac x2. - tetanus updated, given pain control. Suspect tachycardia 2/2 pain. - will obs, no obvious fractures on XR. given augmentin. will not repair since 2 /2 dog bite. - Diagnoses Provider Diagnosis: Dog bite Discharge ED - Sign-Out/Discharge Documenting (check all that apply): Patient Departure - Discharge - Discharge Plan Condition: Stable Disposition: HOME Patient Education Materials: Animal Bite (ED) Referrals: Antonella Esparza MD [Primary Care Provider] - Additional Instructions: You were seen in the emergency department for a dog bite. Your x-rays did not show any fractures. Please take Augmentin twice a day for 7 days. Return for worsening pain, swelling of your arm, drainage from the wounds, fever, tingling or numbness, weakness. If any studies were not completed at the time of discharge you will be called with the relevant results. Please follow up with your primary care doctor in next 2-3 days and return to emergency department for worsening or concerning symptoms. It was a pleasure taking care of you today. - Billing Disposition and Condition Condition: STABLE Disposition: Home - Attestation Statements Document Initiated by Kami: Yes Documenting Scribe: Grisel Villafuerte Provider For Whom Kami is Documenting (Include Credential): Ivonne Chandra MD Scribe Attestation: IGrisel, scribed for Ivonne Chandra MD on 01/16/19 at 2140. Scribe Documentation Reviewed: Yes Provider Attestation: The documentation as recorded by the Grisel gurrola accurately reflects the service I personally performed and the decisions made by , Ivonne Chandra MD Status of Scribe Document: Viewed
[2019-01-16] MEDS ORDERED: oxyCODONE/Acetamin 5/325 MG* TAB PO ONE (21:39)
[2019-01-16] MEDS ORDERED: Bacitracin OINTMENT* 0.5% 0.5 oz TUBE TOPICAL ONE (22:01)
[2019-01-16 22:46] VITALS: BP 146/89
== END 2019-01-16 22:44 | disposition home or self-care (01) ==
LOC: EDBD → ED 19:01
DX: S51.851A Open bite of right forearm, initial encounter (principal); W54.0XXA Bitten by dog, initial encounter; Y92.9 Unspecified place or not applicable; R20.0 Anesthesia of skin
CPT/HCPCS: 90471; 90715; 96374; 96375; 99284; A9270-GY; J2270; J2405

== ENCOUNTER 2019-03-05 15:23 | Emergency (ER) | payer SELFPAY ==
--- NOTE | 2019-03-05 16:13 | ED ---
Upper Extremity Pain - HPI Summary HPI Summary: Patient is a 41 y/o F presenting to the ED for a chief complaint of a fall. Patient states that she fell down 5-6 steps around 14:30 on 03/05/19 while mopping. Patient admits headache, left ankle, and left shoulder pain, but denies head injury or LOC. She believes she hit her upper back. She was able to walk after the fall. She denies any aggravating or alleviating factors. Patient denies taking blood thinners. PSHx is significant for appendectomy, but she denies any PMHx. Patient denies tobacco use, but admits occasional alcohol use and marijuana use last used on 03/05/19. Medications reviewed. Allergies noted. - History of Current Complaint Chief Complaint: EDExtremityLower Stated Complaint: FELL DOWNSTAIRS PER PT Time Seen by Provider: 03/05/19 15:53 Hx Obtained From: Patient Hx Last Menstrual Period: 07/15/18 Mechanism Of Injury: Fall From A Standing Position Onset/Duration: Started Minutes Ago, Traumatic, Still Present Timing: Constant, Lasting Minutes Severity Initially: Moderate Severity Currently: Moderate Pain Location: Shoulder - Left, Other: - Left ankle Aggravating Factor(s): Nothing Alleviating Factor(s): Nothing Associated Signs & Symptoms: Positive: Other - Positive left shoulder and left ankle pain - Allergies/Home Medications Allergies/Adverse Reactions: Allergies Allergy/AdvReac Type Severity Reaction Status Date / Time No Known Allergies Allergy Verified 07/23/18 17:59 PMH/Surg Hx/FS Hx/Imm Hx Previously Healthy: Yes Endocrine/Hematology History: Reports: Other Endocrine/Hematological Disorders - mirena in place Denies: Hx Diabetes, Hx Thyroid Disease Cardiovascular History: Denies: Hx Aneurysm, Hx Angina, Hx Congenital Heart Disease, Hx Congestive Heart Failure, Hx Coronary Artery Disease, Hx Deep Vein Thrombosis, Hx Embolism , Hx Hypertension, Hx Myocardial Infarction, Hx Pacemaker/ICD, Hx Valvular Heart Disease Respiratory History: Reports: Hx Asthma, Hx Sleep Apnea, Other Respiratory Problems/Disorders - uses albuterol inhaler prn. denies hx asthma Denies: Hx Chronic Obstructive Pulmonary Disease (COPD) - admits to bronchitis 2 x year GI History: Reports: Hx Gastroesophageal Reflux Disease Denies: Hx Ulcer Musculoskeletal History: Reports: Hx Arthritis, Hx Back Problems Sensory History: Denies: Hx Legally Blind, Hx Deafness, Hx Hearing Aid Opthamlomology History: Denies: Hx Legally Blind EENT History: Denies: Hx Deafness Psychiatric History: Reports: Hx Anxiety, Hx Depression Denies: Hx Panic Disorder - Cancer History Cancer Type, Location and Year: NON CANCER Hx Chemotherapy: No Hx Radiation Therapy: No - Surgical History Surgical History: Yes Surgery Procedure, Year, and Place: APPENDIX 1993, BENIGN BRONCHIAL TUMOR REMOVED RIGHT SIDE RIB CAGE 2006 Infectious Disease History: No Infectious Disease History: Denies: Hx Hepatitis, Hx Human Immunodeficiency Virus (HIV), Traveled Outside the [place] in Last 30 Days - Family History Known Family History: Positive: Hypertension, Diabetes - Social History Occupation: Unemployed Lives: With Family Alcohol Use: Occasionally Hx Substance Use: Yes Substance Use Type: Reports: Marijuana Substance Use Comment - Amount & Last Used: occasionally Hx Tobacco Use: No - 2nd hand smoke exposure throughout childhood Smoking Status (MU): Never Smoked Tobacco Review of Systems Positive: Arthralgia - Left ankle and left shoulder Neurological: Other - Negative head injury Positive: Headache. Negative: Syncope All Other Systems Reviewed And Are Negative: Yes Physical Exam - Summary Physical Exam Summary: Constitutional: Well-developed, Well-nourished, Alert. (-) Distressed Skin: Warm, Dry HENT: Normocephalic; Atraumatic Eyes: Conjunctiva normal Neck: Musculoskeletal ROM normal neck. (-) JVD, (-) Stridor, (-) Tracheal deviation Cardio: Rhythm regular, rate normal, Heart sounds normal; Intact distal pulses; Radial pulses are 2+ and symmetric. (-) Murmur Pulmonary/Chest wall: Effort normal. (-) Respiratory distress, (-) Wheezes, (-) Rales Abd: Soft, (-) tenderness, (-) Distension, (-) Guarding, (-) Rebound Musculoskeletal: (-) Edema. Tenderness in the left ankle and proximal greenberg, midline tenderness in the cervical and thoracic spine. Lymph: (-) Cervical adenopathy Neuro: Alert, Oriented x3 Psych: Mood and affect Normal Triage Information Reviewed: Yes Vital Signs On Initial Exam: Initial Vitals Temp Pulse Resp BP Pulse Ox 98.7 F 89 18 143/81 99 03/05/19 15:31 03/05/19 15:31 03/05/19 15:31 03/05/19 15:31 03/05/19 15:31 Vital Signs Reviewed: Yes Procedures - Sedation Patient Received Moderate/Deep Sedation with Procedure: No Diagnostics - Vital Signs Vital Signs Temp Pulse Resp BP Pulse Ox 03/05/19 15:31 98.7 F 89 18 143/81 99 - Laboratory Lab Statement: Any lab studies that have been ordered have been reviewed, and results considered in the medical decision making process. - Radiology Lower Extremity X-ray Radiology Interpretation Completed By: Radiologist Summary of Radiographic Findings: Lower Extremity X-Ray IMPRESSION: No fracture of the left lower leg is noted. Reviewed by Dr. Dennis. Cervical Spine X-ray Radiology Interpretation Completed By: Radiologist Summary of Radiographic Findings: Cervical Spine X-ray IMPRESSION: No fracture of the cervical spine is noted. Reviewed by Dr. Dennis. Ankle X-ray Radiology Interpretation Completed By: Radiologist Summary of Radiographic Findings: Ankle X-ray IMPRESSION: SOFT TISSUE SWELLING , NO FRACTURE IS SEEN. Reviewed by Dr. Dennis. - CT Thoracolumbar CT CT Interpretation Completed By: Radiologist Summary of CT Findings: Thoracolumbar Spine IMPRESSION: The thoracolumbar spine appears to be intact. Clothing artifact obscures some areas of the thoracolumbar spine. Reviewed by Dr. Dennis. Course/Dx - Course Course Of Treatment: Patient is here with a low mechanism fall. Patient's overall well-appearing with no outside evidence of trauma. Patient does have bony tenderness on her ankle and mid back so x-rays were performed which were negative. - Diagnoses Provider Diagnoses: Back pain, Ankle pain Discharge ED - Sign-Out/Discharge Documenting (check all that apply): Patient Departure - Discharge - Discharge Plan Condition: Stable Disposition: HOME Patient Education Materials: Back Pain (ED) Referrals: Robert Alexander, [employer] [Primary Care Provider] - Additional Instructions: Take Tylenol as needed for pain. PLEASE RETURN TO EMERGENCY DEPARTMENT FOR ANY NEW OR WORSENING SYMPTOMS. Please follow up with your primary care physician within one week if you continue to have pain. Please make all follow-ups in 1-3 days unless I advise you otherwise. - Billing Disposition and Condition Condition: STABLE Disposition: Home - Attestation Statements Document Initiated by Scribe: Yes Documenting Scribe: Grisel Villafuerte Provider For Whom Kristopheribe is Documenting (Include Credential): Jeff Denins MD Scribe Attestation: Grisel Corona scribed for Jeff Dennis MD on 03/05/19 at 2019. Scribe Documentation Reviewed: Yes Provider Attestation: The documentation as recorded by the scribe, Grisel Villafuerte accurately reflects the service I personally performed and the decisions made by me, Jeff Dennis MD Status of Scribe Document: Viewed
[2019-03-05] MEDS ORDERED: Ibuprofen TAB* 600 MG PO ONE (16:32)
[2019-03-05] MEDS ORDERED: Acetaminophen TAB* 325 MG PO ONE (16:32)
[2019-03-05 18:14] VITALS: BP 125/68
== END 2019-03-05 17:55 | disposition home or self-care (01) ==
LOC: ED 15:23
DX: M54.9 Dorsalgia, unspecified (principal); M25.572 Pain in left ankle and joints of left foot; W10.9XXA Fall (on) (from) unspecified stairs and steps, initial encounter; Y92.9 Unspecified place or not applicable
CPT/HCPCS: 72050; 72080; 99283; A9270-GY

== ENCOUNTER 2020-07-30 12:57 | Inpatient (IN) ==
[2020-07-30] MEDS ORDERED: Ondansetron 4 mg VIAL 2 MG/ML 2 ml VIAL IV ONE (13:33)
[2020-07-30] MEDS ORDERED: NS 0.9% 1000 ml BAG 1,000 ML IV ONE ×2 (13:33→16:07)
[2020-07-30] MEDS ORDERED: Morphine 4 MG/ML VIAL (1 ml) IV ONE (13:33)
[2020-07-30 13:51] LABS: ABS Basophils 0.1 10^3/ul (0-0.2); ABS Eosinophils 0.1 10^3/ul (0-0.6); ABS Lymphocytes 2.7 10^3/ul (1.0-4.8); ABS Monocytes 1.3 10^3/ul (0-0.8); ABS Neutrophils 10.7 10^3/ul (1.5-7.7); Eosinophil % 0.6 %; Hematocrit 41 % (35-47); Lymphocyte % 17.9 %; Mean Corpuscular HGB Conc 34 g/dL (31-36); Mean Corpuscular Hemoglobin 31 pg (27-31); Mean Corpuscular Volume 91 fL (80-97); Mean Platelet Volume 6.9 fL (7.4-10.4); Platelet Count 342 10^3/uL (150-450); Red Cell Distribution Width 14 % (10-15); White Blood Count 14.9 10^3/uL (3.5-10.8)
[2020-07-30 14:05] LABS: Urine Appearance Cloudy; Urine Bilirubin Negative (Negative); Urine Blood Negative (Negative); Urine Color Yellow; Urine Glucose Negative (Negative); Urine Ketones Negative (Negative); Urine Nitrite Negative (Negative); Urine Protein Negative (Negative); Urine Specific Gravity 1.023 (1.002-1.030); Urine Urobilinogen Negative (Negative)
[2020-07-30 14:16] LABS: ALT 12 U/L (7-52); AST 11 U/L (13-39); Albumin 3.8 g/dL (3.2-5.2); Albumin/Globulin Ratio 1.2 (1-3); Alkaline Phosphatase 83 U/L (34-104); Anion Gap 7 mmol/L (2-11); Blood Urea Nitrogen 11 mg/dL (6-24); C Reactive Protein 98.46 mg/L (<8.01); CO2 Carbon Dioxide 24 mmol/L (22-32); Chloride 105 mmol/L (101-111); EGFR African American 124.8 (>60); EGFR Non-African American 103.2 (>60); Globulin 3.1 g/dL (2-4); Glucose 100 mg/dL (70-100); Lipase < 10 U/L (11.0-82.0); Potassium 3.5 mmol/L (3.5-5.0); Sodium 136 mmol/L (135-145); Total Protein 6.9 g/dL (6.4-8.9)
[2020-07-30 14:19] LABS: Urine Bacteria Absent (Absent); Urine Red Blood Cell 3+(>10/hpf) (Absent); Urine Squamous Epithelial Cell Present (Absent); Urine White Blood Cell 3+(>20/hpf) (Absent)
[2020-07-30] MEDS ORDERED: Iohexol 300 (CONTRAST) 10 ML SDV IV ONE (14:55)
[2020-07-30] MEDS ORDERED: cefTRIAXone 1 gm/50 mL NS BAG 1 GM/50 ML BAG IV ONE (16:08)
[2020-07-30] MEDS ORDERED: metroNIDAZOLE IV 500 MG/100ML 500 MG/100 ML BAG IVPB ONE (16:08)
[2020-07-30] MEDS: Ondansetron 4 mg VIAL 2 MG/ML 2 ml VIAL IV PRN (20:49)
[2020-07-30] MEDS: Heparin 5000 UNITS/ML 1 mL VIAL SUBCUT SCH (20:51)
[2020-07-30] MEDS: NS 0.9% 1000 ml BAG 1,000 ML IV SCH (20:54)
[2020-07-30] MEDS: Albuterol HFA INHALER 8 gm MDI INH SCH (20:58)
[2020-07-31] MEDS: Albuterol HFA INHALER 8 gm MDI INH SCH ×4 (00:36→20:12)
[2020-07-31] MEDS: Ondansetron 4 mg VIAL 2 MG/ML 2 ml VIAL IV PRN ×3 (03:13→20:18)
[2020-07-31] MEDS: metroNIDAZOLE IV 500 MG/100ML 500 MG/100 ML BAG IVPB SCH ×2 (04:04→16:55)
[2020-07-31 06:55] LABS: ABS Eosinophils 0.1 10^3/ul (0-0.6); ABS Lymphocytes 2.1 10^3/ul (1.0-4.8); ABS Monocytes 0.8 10^3/ul (0-0.8); ABS Neutrophils 6.5 10^3/ul (1.5-7.7); Eosinophil % 1.2 %; Hematocrit 36 % (35-47); Hemoglobin 12.4 g/dL (12.0-16.0); Lymphocyte % 22.2 %; Mean Corpuscular HGB Conc 35 g/dL (31-36); Mean Corpuscular Hemoglobin 32 pg (27-31); Mean Corpuscular Volume 93 fL (80-97); Mean Platelet Volume 7.2 fL (7.4-10.4); Platelet Count 269 10^3/uL (150-450); Red Blood Count 3.86 10^6 /uL (3.70-4.87); Red Cell Distribution Width 14 % (10-15); White Blood Count 9.5 10^3/uL (3.5-10.8)
[2020-07-31] MEDS: Heparin 5000 UNITS/ML 1 mL VIAL SUBCUT SCH ×2 (08:04→20:20)
[2020-07-31] MEDS: NS 0.9% 1000 ml BAG 1,000 ML IV SCH (10:00)
[2020-07-31] MEDS: Polyethylene Glycol 3350 17 GM PACKET PO PRN (15:04)
[2020-07-31] MEDS: cefTRIAXone 1 gm/50 mL NS BAG 1 GM/50 ML BAG IVPB SCH (15:59)
[2020-08-01] MEDS: NS 0.9% 1000 ml BAG 1,000 ML IV SCH (00:13)
[2020-08-01] MEDS: Albuterol HFA INHALER 8 gm MDI INH SCH ×4 (03:11→19:10)
[2020-08-01] MEDS: metroNIDAZOLE IV 500 MG/100ML 500 MG/100 ML BAG IVPB SCH ×2 (05:12→17:54)
[2020-08-01] MEDS: Ondansetron 4 mg VIAL 2 MG/ML 2 ml VIAL IV PRN ×3 (05:13→19:30)
[2020-08-01] MEDS: Polyethylene Glycol 3350 17 GM PACKET PO PRN (09:34)
[2020-08-01] MEDS: Heparin 5000 UNITS/ML 1 mL VIAL SUBCUT SCH ×2 (09:35→22:08)
[2020-08-01 16:14] LABS: HIV 4th Generation Nonreactive (Nonreactive)
[2020-08-01] MEDS: cefTRIAXone 1 gm/50 mL NS BAG 1 GM/50 ML BAG IVPB SCH (17:13)
[2020-08-02] MEDS: Albuterol HFA INHALER 8 gm MDI INH SCH ×4 (01:56→17:55)
[2020-08-02] MEDS: Ondansetron 4 mg VIAL 2 MG/ML 2 ml VIAL IV PRN (02:26)
[2020-08-02] MEDS: metroNIDAZOLE IV 500 MG/100ML 500 MG/100 ML BAG IVPB SCH ×2 (05:28→16:28)
[2020-08-02] MEDS: Heparin 5000 UNITS/ML 1 mL VIAL SUBCUT SCH (09:27)
[2020-08-02] MEDS: Polyethylene Glycol 3350 17 GM PACKET PO PRN (10:57)
[2020-08-02] MEDS: cefTRIAXone 1 gm/50 mL NS BAG 1 GM/50 ML BAG IVPB SCH (15:40)
[2020-08-02 17:07] VITALS: BP 129/77
== END 2020-08-02 19:41 | disposition home or self-care (01) | DRG 244 ==
LOC: MED 12:57 → ED 12:57 → MED 20:04
PROVIDERS: ADMIT Hospitalist; ATTEND Internal Medicine